=== PATIENT | male | born 1990 | race African-American/Black ===

== ENCOUNTER 2019-05-03 17:19 | Emergency (ER) | payer MEDICAID ==
[~2019-05-03] VITALS: Ht 180.3 cm; Wt 81.6 kg
[2019-05-03 17:30] VITALS: BP 124/76
[2019-05-03] MEDS ORDERED: BENZOCAINE (DENTAL) 20 % SPRAY 60ML MT ONE (19:15)
== END 2019-05-03 19:29 | disposition home or self-care (01) ==
LOC: ER 17:27
DX: K08.89 Other specified disorders of teeth and supporting structures (principal); F17.210 Nicotine dependence, cigarettes, uncomplicated; F12.90 Cannabis use, unspecified, uncomplicated